=== PATIENT | male | born 1945 | race Caucasian/White ===

== ENCOUNTER 2017-03-24 13:42 | Emergency (ER) | payer SELFPAY ==
[~2017-03-24] VITALS: Ht 185.4 cm; Wt 88.5 kg
--- NOTE | 2017-03-24 15:00 | NUR ---
Pt eloped from facility, blood was not drawn. Dr Myron yip.
--- NOTE | 2017-03-24 15:30 | NUR ---
Pt came back to ER, stated " I went to get something to eat". Dr Sanchse notified and lab called for blood draw.
--- NOTE | 2017-03-24 15:38 | NUR ---
Pt had his blood drawn and was given verbal ACI by Dr Sanches.
[2017-03-24 15:59] LABS: BILIRUBIN,DIRECT 0.1 mg/dL (0.0-0.2); BILIRUBIN,TOTAL 0.4 mg/dL (0.2-1.0); TOTAL PROTEIN, SERUM 7.4 g/dL (6.4-8.2)
[2017-03-26 06:08] LABS: HEPATITIS B SURFACE AB Reactive (.); HEPATITIS B SURFACE AG Negative (Negative)
== END 2017-03-24 15:17 | disposition left against medical advice (07) ==
LOC: ER 13:46
DX: S61.233A Puncture wound without foreign body of left middle finger without damage to nail, initial encounter (principal); I10 Essential (primary) hypertension; Z86.19 Personal history of other infectious and parasitic diseases; X58.XXXA Exposure to other specified factors, initial encounter; Y93.89 Activity, other specified; Y99.8 Other external cause status; Y92.89 Other specified places as the place of occurrence of the external cause
CPT/HCPCS: 36415; 86706; 86803; 87340; 87536; A4663

== ENCOUNTER 2018-04-08 18:22 | Emergency (ER) | payer MEDICARE ==
[~2018-04-08] VITALS: Ht 188 cm; Wt 88.5 kg
[2018-04-08] MEDS ORDERED: PANTOPRAZOLE TAB 40MG (18:32)
[2018-04-08] MEDS ORDERED: VALSARTAN 80 MG (18:32)
[2018-04-08] MEDS ORDERED: METFORMIN TAB 1000MG (18:32)
[2018-04-08] MEDS ORDERED: ATORVASTATIN 80 MG TABLET (18:33)
[2018-04-08] MEDS ORDERED: CARVEDILOL 6.25 MG TABLET (18:33)
[2018-04-08] MEDS ORDERED: AMLODIPINE BESYLATE 5 MG TAB (18:33)
[2018-04-08] MEDS ORDERED: VOLTAREN 1% GEL (18:33)
--- NOTE | 2018-04-08 18:35 | NUR ---
dr campos evaluated the pt.
[2018-04-08] MEDS ORDERED: ONDANSETRON 4 MG/2 ML VIAL IV ONE ×2 (18:45→19:30)
[2018-04-08] MEDS ORDERED: ONDANSETRON 4 MG/2 ML VIAL ONE ×2 (18:45→19:26)
[2018-04-08] MEDS ORDERED: HYDROMORPHONE 2 MG/1 ML DISP.SYRIN ONE ×3 (18:45→19:26)
[2018-04-08] MEDS ORDERED: HYDROMORPHONE 1 MG/1 ML DISP.SYRIN IV ONE ×3 (18:45→19:30)
[2018-04-08] MEDS ORDERED: diphenhydrAMINE 50 MG/1 ML VIAL IV ONE (18:45)
[2018-04-08] MEDS ORDERED: diphenhydrAMINE 50 MG/1 ML VIAL ONE (18:45)
--- NOTE | 2018-04-08 18:49 | NUR ---
Call placed to [facility], Teo Johnson (OPHTHALMOLOGY). The on-call physician, Dr. Cotton has been paged.
--- NOTE | 2018-04-08 18:59 | NUR ---
report given to joe Jung.
[2018-04-08] MEDS ORDERED: ALBUTEROL SULFATE 2.5 MG/3 ML NEBU NEB ONE (19:00)
[2018-04-08] MEDS ORDERED: ALBUTEROL SULFATE 2.5 MG/3 ML NEBU ONE (19:03)
[2018-04-08] MEDS ORDERED: PILOCARPINE 1% OPHT DROP 15 ML BOTTLE OP ONE (19:15)
[2018-04-08] MEDS ORDERED: TIMOLOL MALEATE 0.5% OPHT DROP 5 ML BOTTLE OP ONE (19:15)
[2018-04-08] MEDS ORDERED: ACETAzolamide SODIUM 500 MG VIAL IV ONE (19:15)
[2018-04-08] MEDS ORDERED: TETRACAINE HCL 0.5% OPHT DROP 2 ML BOTTLE ONE (19:16)
[2018-04-08] MEDS ORDERED: ACETAzolamide SODIUM 500 MG VIAL ONE (19:19)
[2018-04-08] MEDS ORDERED: TIMOLOL MALEATE 0.5% OPHT DROP 5 ML BOTTLE ONE (19:20)
[2018-04-08] MEDS ORDERED: PILOCARPINE 1% OPHT DROP 15 ML BOTTLE ONE (19:20)
--- NOTE | 2018-04-08 19:34 | NUR ---
Patient does not wish to proceed with medical care recommended by Dr. Linton. Patient given information related to possible complications, up to and including , which could occur as a result of leaving the hospital at this time. Patient verbalizes understanding of risks involved due to leaving against medical advice. Pt refused eye exam, reports he just wants to get out of here and go to [facility]. IV site discontinued. Patient has signed AMA form. Assisted pt to wheelchair, VSS, no acute signs of distress, all belongings taken, to be driven via private vehicle by friend.
[2018-04-08] MEDS ORDERED: TETRACAINE HCL 0.5% OPHT DROP 2 ML BOTTLE OP ONE (19:45)
[2018-04-08 20:04] VITALS: BP 154/86
== END 2018-04-08 19:34 | disposition left against medical advice (07) ==
LOC: ER 18:24
DX: H59.89 Other postprocedural complications and disorders of eye and adnexa, not elsewhere classified (principal); I10 Essential (primary) hypertension; I25.10 Atherosclerotic heart disease of native coronary artery without angina pectoris; R06.02 Shortness of breath; Z79.84 Long term (current) use of oral hypoglycemic drugs; Z79.899 Other long term (current) drug therapy
CPT/HCPCS: A4663; J1120; J1170; J1200; J2405; J3590